=== PATIENT | female | born 2000 | race African-American/Black ===

== ENCOUNTER 2024-10-08 08:03 | Emergency (ER) | payer OTHER ==
[2024-10-08] MEDS ORDERED: Acetaminophen 500 MG TAB ONE (08:32)
== END 2024-10-08 08:45 | disposition home or self-care (01) ==
LOC: NAV ERS 08:03
DX: S00.83XA Contusion of other part of head, initial encounter (principal); V49.49XA Driver injured in collision with other motor vehicles in traffic accident, initial encounter; Y93.89 Activity, other specified
CPT/HCPCS: 99284